=== PATIENT | male | born 1965 | race Caucasian/White ===

== ENCOUNTER 2021-08-19 17:40 | Emergency (ER) | payer MEDICARE ==
[2021-08-19 18:08] LABS: BASOPHIL 0.5 % (0-2); EOSINOPHIL 1.9 % (0-5); HCT 49.2 % (42.0-52.0); HGB 17.8 g/dl (13.2-18.0); LYMPHOCYTE 18.4 % (15-48); MCH 32.5 pg (25.0-31.0); MCHC 36.2 g/dL (32.0-36.0); MCV 89.8 fL (78.0-100.0); MONOCYTE 9.8 % (0-12); NEUTROPHIL 68.9 % (41-80); NRBC 0; PLT 270 K/uL (150-400); RBC 5.48 M/uL (4.70-6.00); RDW 12.8 % (11.5-14.0); WBC 9.7 K/uL (4.0-10.5)
[2021-08-19 18:21] LABS: INR 1.1 (0.9-1.2); PROTHROMBIN TIME 13.6 SECONDS (11.8-13.4); PTT 26.7 SECONDS (24.4-34.7)
[2021-08-19 18:22] LABS: D-DIMER 0.32 ug/mLFEU (0.00-0.41)
[2021-08-19 18:32] LABS: ALBUMIN 3.7 g/dL (3.4-5.0); BILIRUBIN - TOTAL 0.7 mg/dL (0.2-1.0); BUN/CREAT RATIO (CALC) 13.3 RATIO; CREATININE 1.28 mg/dL (0.67-1.17); GLOBULIN (CALCULATION) 3.6 g/dL; POTASSIUM 3.8 mmol/L (3.5-5.1); TOTAL PROTEIN 7.3 g/dL (6.4-8.2)
[2021-08-19] MEDS ORDERED: AZITHROMYCIN250 MG PO (20:34)
[2021-08-19] MEDS ORDERED: PREDNISONE 20MG20 MG PO (20:34)
[2021-08-19] MEDS ORDERED: VENTOLIN HFA IN18 GM INH (20:34)
== END 2021-08-19 20:55 | disposition home or self-care (01) ==
LOC: FER 17:40
PROVIDERS: Emergency Medicine
DX: R07.89 Other chest pain (principal); J43.9 Emphysema, unspecified; I10 Essential (primary) hypertension; K21.9 Gastro-esophageal reflux disease without esophagitis; E78.5 Hyperlipidemia, unspecified; Z28.310 Unvaccinated for COVID-19; Z79.899 Other long term (current) drug therapy; Z79.82 Long term (current) use of aspirin; Z88.0 Allergy status to penicillin
CPT/HCPCS: 36415; 71045; 80053; 84484; 85025; 85379; 85610; 85730; 93005; 94640; 94664; J1100